=== PATIENT | female | born 1935 | race Caucasian/White ===

== ENCOUNTER → 2017-07-04 | Outpatient (CLI) | payer OTHER ==
[~2017-07-04] MED LIST: AMBEREN PO; AMLODIPINE BESYL5 MG PO; ASPIRIN EC81 M1 PO; AVELOX 400 MG400 MG PO; CALCIUM PO; CYMBALTA60 MG PO; DESYREL100 MG PO; DULERA 100 MCG/13 GM INH; MULTIVITAMINS1 EAC7; TRAZODONE 150150 M1; VICODIN 5-5001 EACH PO; ZOFRAN ODT4 MG PO
== END ==
LOC: RAD 13:01
DX: Z12.31 Encounter for screening mammogram for malignant neoplasm of breast (principal)

== ENCOUNTER → 2018-09-02 | Outpatient (CLI) | payer OTHER | LOC: RAD 02:02 | DX: Z12.31 Encounter for screening mammogram for malignant neoplasm of breast (principal) ==

== ENCOUNTER → 2019-05-26 | Outpatient (CLI) | payer OTHER | LOC: BC 09:44 → RAD 09:44 → BC 10:02 | DX: N64.4 Mastodynia (principal) ==

== ENCOUNTER → 2020-07-27 | Outpatient (CLI) | payer OTHER | LOC: BC 12:25 | DX: Z12.31 Encounter for screening mammogram for malignant neoplasm of breast (principal) ==